=== PATIENT | female | born 1955 | race Caucasian/White ===

== ENCOUNTER 2025-03-24 09:29 | Outpatient (AMB) | payer MEDICARE, SELFPAY ==
--- NOTE | 2025-03-24 09:40 | A.PHYSOV ---
Vital Signs 03/24/25 09:41 Height 5 ft 3.5 in Weight 124 lb BMI 21.6 Intake Visit Reasons: CT followup ([facility]) Intake Note: Patient is a 69 year old female here for CT scan results Allergies metronidazole, micronized Allergy (Unknown, Verified 03/24/25 09:43) Unknown nitrofurantoin Allergy (Unknown, Verified 03/24/25 09:43) Unknown propoxyphene Allergy (Unknown, Verified 03/24/25 09:43) Unknown HPI Comments Details: History of Present Illness The patient is a 69 year old female presenting for follow-up on her neck pain and recent CT scan results. She reports her pain has significantly improved with physical therapy, which she performs twice a day. Her pain is currently minimal, rated 6/10, occurring occasionally, mostly in the morning, and is localized to the left side of her neck without radiation into her arm. Her physical therapist noted her posterior neck muscles were very relaxed while the anterior muscles were very tight. Initially, she experienced severe pain upon palpation of her spine by the therapist, but this has since resolved, and she has been compliant with her home exercise program. A recent soft tissue CT scan of the neck was performed and was noted to be normal, showing only some muscle spasm and ruling out any vascular issues such as an aneurysm. She has no metal implants and no history of claustrophobia with prior MRIs, making her a suitable candidate for a new MRI. She completed 6 weeks of physical therapy without relief of her symptoms. She finds that her symptoms limit her ability to perform her activities of daily living. Pain Description - Location: Pain is on the left side of the neck. - Severity: Patient rates her current pain as minimal, a 1 out of 10. - Onset/Timing: Occurs occasionally, mostly in the morning. - Radiation: The pain does not radiate into her arm. - Relieving Factors: Physical therapy and exercises. - Associated Symptoms: The patient can move well without major discomfort. Results - Imaging: - Soft Tissue CT Scan of the neck: Normal, with no evidence of vascular abnormality or aneurysm. Showed some muscle spasm. The test was noted to be suboptimal for evaluation of bone, discs, and nerves. PFSH Surgical History H/O: hysterectomy History of cholecystectomy Social History (Updated 03/24/25 @ 09:45 by Rosa Coronado MA) Alcohol intake: current Alcohol intake frequency: does not drink Patient Tobacco Use Status: Never used Tobacco Use of substances other than those prescribed or required for medical reasons: No Current occupational status: retired Review of Systems Narrative Review of Systems - Musculoskeletal: Reports occasional, minimal left-sided neck pain, primarily in the morning. Reports a palpable lump in her neck. - Neurological: Denies pain radiating into her arm. - Psychiatric: Denies claustrophobia. Physical Exam Exam Exam: Physical Exam - Cervical Spine: Examination of the cervical spine, she is tender with a palpable nodule to the C4 area on the left. She has limited range of motion of the cervical spine at end range throughout. Special Tests: Axial Compression test: Negative Spurlings test: Negative Lhermitte's sign is Negative Upper Extremities: Full range of motion bilateral upper extremities. Equal director of video analytics strength bilaterally. Neuro: Sensation: Intact to upper extremities bilateral to light touch Strength C5 (Elbow Flexion): 5/5 on the left and 5/5 on the right. C6 (Elbow Ext): 5/5 on the left and 5/5 on the right. C7 (Elbow Ext): 5/5 on the left and 5/5 on the right. C8 (Finger Flex): 5/5 on the left and 5/5 on the right. T1 (Finger Abd/Add): 5/5 on the left and 5/5 on the right. DTR: C5 (Biceps): Left 2 Right 2 C6 (Brachioradialis): Left 2 Right 2 C7 (Triceps): Left 2 Right 2 Crowley sign: Negative No pathologic clonus. No involuntary movement. Vital Signs: BMI result Body Mass Index 21.6 Assessment & Plan Assessment & Plan (1) Cervicalgia: Code(s): M54.2 - Cervicalgia Category: Medical (2) Cervical spondylosis: Code(s): M47.812 - Spondylosis without myelopathy or radiculopathy, cervical region Category: Medical Plan Pain Management - Analgesia: Current pain level is 10. Pain is managed with physical therapy exercises. - Activities of Daily Living: The patient is able to move well without major discomfort. - Affect: The patient is not overly concerned about her symptoms due to improvement with exercise, but agrees to further imaging for peace of mind. Plan Patient was informed and verbally consented to the use of an ambient scribe for clinic note documentation during this visit. 1. Cervicalgia The patient's neck pain has significantly improved with physical therapy and is now minimal. A recent soft tissue CT was of limited value for osseous or neurologic structures but did rule out emergent vascular causes like an aneurysm, though it did show muscle spasm. The leading hypothesis for her symptoms is a bony spur or other musculoskeletal issue. The plan is to obtain a cervical spine MRI for a more comprehensive evaluation of the bone, discs, and nerves. This will help confirm the etiology of her symptoms, including the palpable lump, and guide future management should her pain return. She will continue her home exercise program in the interim. Discussion Notes I discussed with the patient that her recent soft tissue CT scan was suboptimal for evaluating the bones, discs, and nerves of her neck, which are common sources of pain. I explained the benefit of the CT was that it was normal and ruled out any urgent vascular pathology, such as an aneurysm. I informed her that her symptoms and palpable lump are most likely related to a bony issue like a spur, which would be better seen on an MRI. Given her significant symptomatic improvement, I offered the option to wait or to proceed with a cervical MRI for a more definitive diagnosis and peace of mind. The patient elected to proceed with the MRI. I will order the MRI of her cervical spine, and our office will obtain prior authorization. The imaging facility will then contact her to schedule. We will arrange a follow-up appointment to review the results once the MRI is complete. I advised her to continue her physical therapy exercises, as they have been effective. Patient Instructions - Continue to do your physical therapy exercises daily, as this seems to be helping your pain. - We will order an MRI of your neck. The imaging center will call you to schedule it; please arrange the appointment for after you return from your upcoming trip. - After the MRI is done, our office will call you to set up a follow-up visit to go over the results. - Your recent CT scan looked good and did not show any dangerous problems with the blood vessels in your neck. - If your pain returns or worsens, please come back in to be seen. Orders: Orders MR cervical spine wo con Today M54.12 - Radiculopathy, cervical region Coding Level of Care Code Tele Est Pt Level 3 (01338) Diagnoses Cervicalgia M54.2 Cervical spondylosis M47.812
[2025-03-24 09:41] VITALS: BMI 21.6
== END 2025-03-24 10:02 | disposition home or self-care (01) ==
LOC: HO.HPHYS 09:29
PROVIDERS: PCP Family Medicine; Visit Provider Physician Assistant
DX: M54.2 Cervicalgia (principal); M47.812 Spondylosis without myelopathy or radiculopathy, cervical region
CPT/HCPCS: 99213

== ENCOUNTER → 2025-03-24 09:29 | Outpatient (BNVA) | payer MEDICARE, SELFPAY | PROVIDERS: PCP Family Medicine; Visit Provider Physician Assistant | DX: M47.812 Spondylosis without myelopathy or radiculopathy, cervical region (principal) | CPT/HCPCS: 99212 ==